=== PATIENT | female | born 1935 | race Caucasian/White ===

== ENCOUNTER 2018-06-16 11:31 | Day surgery (SDC) | payer OTHER ==
[~2018-06-16] VITALS: Ht 165.1 cm; Wt 60.8 kg
[2018-06-16] MEDS ORDERED: LOSA25 PO (12:15)
[2018-06-16] MEDS ORDERED: XARELTO20 MG PO (12:16)
== END 2018-06-16 15:20 | disposition home or self-care (01) ==
LOC: ORSCSDS 11:31
PROVIDERS: Orthopaedic Surgery
PROC: 01N50ZZ Release Median Nerve, Open Approach (ICD-10-PCS; principal; 2018-06-16 12:45)
DX: G56.02 Carpal tunnel syndrome, left upper limb (principal); I10 Essential (primary) hypertension; I48.91 Unspecified atrial fibrillation; Z79.01 Long term (current) use of anticoagulants; Z79.899 Other long term (current) drug therapy
CPT/HCPCS: J0690; J2250; J7120

== ENCOUNTER → 2019-05-11 | Outpatient (CLI) | payer OTHER ==
[~2019-05-11] MED LIST: CHOL10002 PO; DIGESTIVE ENZY1 EAC1 PO; Fish Oil 1,0001 EAC3 PO; LOSA25 PO; LOSARTAN-HCTZ1 EACH PO; Multivitamin1 EAC1 PO; PROBIOTIC1 EAC1 PO; XARELTO20 MG PO
== END | disposition home or self-care (01) ==
LOC: LAB SHORT 12:20 → LAB EV 12:20
DX: N89.8 Other specified noninflammatory disorders of vagina (principal)
CPT/HCPCS: 87205

== ENCOUNTER → 2019-08-06 | Outpatient (CLI) | payer OTHER | END | disposition home or self-care (01) | LOC: PLD 13:11 → LAB SHORT 13:11 | DX: C53.9 Malignant neoplasm of cervix uteri, unspecified (principal) | CPT/HCPCS: 88305 ==

== ENCOUNTER 2019-11-25 11:12 | Inpatient (IN) | payer OTHER ==
[~2019-11-25] VITALS: Ht 165.1 cm; Wt 59.1 kg
[~2019-11-25 11:12] MED LIST changes: -ONDA4 PO
[2019-11-25] MEDS ORDERED: ONDA4 PO (13:26)
--- NOTE | 2019-11-25 18:27 | NUR ---
SHIFT SUMMARY PT ADMITTED TO THE ROOM THIS AFTERNOON. PT TO THE ROOM VIA GURNEY. PT TRANSFERED INDEPENDENTLY TO THE BED. PT ALERT AND ORIENTED. PT UP TO BATHROOM WITH STANDBY ASSIST/HELP WITH IV POLE. ADMISSION ASSESSMENT COMPLETED IN ROOM WITH PT. PT CURRENTLY UP IN BED WITH SISTER IN ROOM.
[2019-11-26 01:25] LABS: Adenovirus F 40/41 Not Detected (NOT DETECT); Astrovirus Not Detected (NOT DETECT); Campylobacter Sp Not Detected (NOT DETECT); Cryptosporidium Not Detected (NOT DETECT); Cyclospora Cayetanensis Not Detected (NOT DETECT); E. Coli O157 Not Detected (NOT DETECT); Entamoeba Histolytica Not Detected (NOT DETECT); Enteroaggregative E. coli-EAEC Not Detected (NOT DETECT); Enteropathogenic E. coli-EPEC Not Detected (NOT DETECT); Enterotoxigenic E. coli-ETEC Not Detected (NOT DETECT); Giardia Lamblia Not Detected (NOT DETECT); Norovirus GI/GII Not Detected (NOT DETECT); Plesiomonas Shigelloides Not Detected (NOT DETECT); Rotavirus A Not Detected (NOT DETECT); Salmonella Sp Not Detected (NOT DETECT); Sapovirus Not Detected (NOT DETECT); Shiga Toxin-prod E. coli-STEC Not Detected (NOT DETECT); Shigella/Enteroin E. coli-EIEC Not Detected (NOT DETECT); Vibrio Cholerae Not Detected (NOT DETECT); Vibrio Sp Not Detected (NOT DETECT); Yersinia Enterocolitica Not Detected (NOT DETECT)
[2019-11-26 04:59] LABS: Hematocrit 27.6 % (33.0-51.0); Hemoglobin 10.2 g/dL (11.5-16.0); Mean Corpuscular HGB 34.8 pg (26.0-34.0); Mean Corpuscular Volume 94 fL (80-100); Platelet Count 278 K/mm3 (150-400); RDW Coefficient Variation 20.9 % (11.7-14.2); RDW Standard Deviation 65.7 fL (35.1-46.3); Red Blood Cell Count 2.93 M/mm3 (3.80-5.20); White Blood Cell Count 3.59 K/mm3 (4.00-11.30)
[2019-11-26 05:15] LABS: Alanine Aminotransfer (ALT/SGP 32 U/L (12-78); Albumin, Blood 2.4 g/dL (3.4-5.0); Albumin/Globulin Ratio 0.9 (0.8-1.8); Alk Phos 53 U/L (50-136); Anion Gap 10 mmol/L (6-16); Aspartate Aminotrans (AST/SGOT 18 U/L (12-37); Bilirubin, Total 0.8 mg/dL (0.1-1.0); Blood Urea Nitrogen 20 mg/dL (8-24); Bun/Creatinine Ratio 21.9 (12.0-20.0); CO2, Blood 20 mmol/L (21-32); Calcium, Blood 8.2 mg/dL (8.5-10.1); Chloride, Blood 101 mmol/L (98-108); Creatinine, Blood 0.92 mg/dL (0.40-1.00); Globulin, Blood 2.6 g/dL (2.2-4.0); Glomerular Filtration Rate >60 (60-); Glucose, Blood 111 mg/dL (70-99); Potassium, Blood 2.9 mmol/L (3.5-5.5); Sodium, Blood 131 mmol/L (136-145)
--- NOTE | 2019-11-26 05:32 | NUR ---
SHIFT SUMMARY PT REPORTS OVERALL JUST "NOT FEELING WELL". HAD SEVERAL VERY LARGE LIQUID/WATERY STOOLS THIS EVENING. SAMPLE SENT TO LAB COMING BACK NEGATIVE FOR EVERYTHING TESTED. DENIED NAUSEA THROUGH MUCH OF THE NIGHT UNTIL THIS AM. MEDICATED W/ 12.5 MG PHENERGAN WITH GOOD EFFECT. BONNIE COMPLETED THIS EVENING. PT'S POTASSIUM REMAINS LOW THIS AM 2.9. SPOKE WITH PEDIATRIC ACUTE CARE UNIT NURSE REGAN NATHAN. WILL NOTIFY HOSPITALIST WHEN SOMEONE CALLS. PT CONTINUES TO HAVE D5 W/ 1/2 NS AND 2O OF POTASSIUM RUNNING AT 100 ML/HR. TELEMETRY HAS REMAINED STABLE, SR W/ FIRST DEGREE HEART BLOCK AT 72.
[2019-11-26 05:58] LABS: BAND PERCENT MAN 8 % (0-8); BASOPHILS PERCENT MAN 0 % (0-2); EOSINOPHILS ABSOLUTE MAN 0.03 K/mm3 (0.00-0.68); EOSINOPHILS PERCENT MAN 1 % (0-6); LYMPHOCYTES ABSOLUTE MAN 0.53 K/mm3 (0.84-5.20); LYMPHOCYTES PERCENT MAN 15 % (21-46); METAMYELOCYTE ABSOLUTE MAN 0.03 K/mm3 (0.00-0.00); METAMYELOCYTE PERCENT MAN 1 % (0-0); MONOCYTES PERCENT MAN 28 % (4-13); NEUTROPHILS ABSOLUTE MAN 1.97 K/mm3 (1.96-9.15); SEG NEUTROPHILS PERCENT MAN 47 % (41-73); TOTAL CELLS COUNTED 100
--- NOTE | 2019-11-26 06:29 | NUR ---
HYPOKALEMIA DR. KING NOTIFIED OF POTASSIUM OF 2.9 THIS AM. NEW ORDERS FOR KCL 40 MEQ IV X 1.
--- NOTE | 2019-11-26 15:19 | NUR ---
Upon receiving an admit referral for spiritual care, I visit patient. Patient immediately shares about her recent medical history and family. Patient explains about the fatigue she feels. Patient's son-in-law enters patient's room and I learn that he travelled from [place] to visit patient. I ask patient if I could say a prayer for her, which she aggrees to. I gladly provide prayer and then leave so patient can visit with family. I will continue to remain available to patient and family.
[2019-11-26 16:42] LABS: Anion Gap 7 mmol/L (6-16); Blood Urea Nitrogen 16 mg/dL (8-24); Bun/Creatinine Ratio 17.6 (12.0-20.0); CO2, Blood 19 mmol/L (21-32); Calcium, Blood 8.1 mg/dL (8.5-10.1); Chloride, Blood 104 mmol/L (98-108); Creatinine, Blood 0.91 mg/dL (0.40-1.00); Glomerular Filtration Rate >60 (60-); Glucose, Blood 108 mg/dL (70-99); Potassium, Blood 3.1 mmol/L (3.5-5.5); Sodium, Blood 130 mmol/L (136-145)
--- NOTE | 2019-11-26 18:21 | NUR ---
SHIFT SUMMARY- PT IS A/O, PLESANT AND COOPERATIVE. SHE HAS SOME INTERMITENT NAUSEA AND DIARRHEA. HER APPETITE IS LOW. SHE HAD VISITORS AT BEDSIDE PERIODICALLY THROUGHOUT THIS SHIFT. SHE SLEPT INTERMITENTLY.
--- NOTE | 2019-11-26 22:50 | NUR ---
AFIB AROUND 2215 PT CONVERTED TO AFIB 80-90'S PER ZUNILDA CHRISTIANSEN. PER TELE REPORT PT OCCASIONALLY SPIKES INTO THE 120'S BUT HAS MOSTLY SUSTAINED 80-90'S. PT HAS A HX OF AFIB AND IS ON XARELTO. FLAVIO FENTON NOTIFED THAT PT HAD CONVERTED NO NEW ORDERS WERE GIVEN.
--- NOTE | 2019-11-27 04:34 | NUR ---
SHIFT SUMMARY PT VERY UNCOMFORTABLE AT THE BEGINNING OF THE SHIFT. INTERMITTENT NAUSEA, THAT DID NOT RESPOND TO IV ZOFRAN. ORDER RECEIVED FOR IV ATIVAN AND ADDITIONAL ORDERS FOR NAUSEA. PT RESPONDED WELL TO ATIVAN AND WAS ABLE TO REST FOR A FEW HOURS. NO EPISODES OF VOMITTING. PT DOES NOT USE CALL LIGHT AND DOES NOT REQUEST ANYTHING FOR NAUSEA WHEN SHE IS HAVING EPISODES, I ENCOURAGED PT TO NOTIFY ME IF SHE FELT SICK SO THAT I COULD MEDICATE IF NEEDED. PT EXPRESSED UNDERSTANDING. NO OTHER CHANGES TO REPORT. PO POTASSIUM PER ORDERS. BED IN LOWEST POSITION, CALL LIGHT WITHIN REACH. WILL CONTINUE TO MONITOR AND REPORT TO ONCOMING RN.
[2019-11-27 04:50] LABS: Hematocrit 33.9 % (33.0-51.0); Hemoglobin 12.6 g/dL (11.5-16.0); Mean Corpuscular HGB 35.2 pg (26.0-34.0); Mean Corpuscular HGB Conc 37.2 g/dL (31.5-36.5); Mean Corpuscular Volume 95 fL (80-100); Mean Platelet Volume 9.1 fL (9.1-12.4); Platelet Count 323 K/mm3 (150-400); RDW Coefficient Variation 21.4 % (11.7-14.2); RDW Standard Deviation 68.9 fL (35.1-46.3); Red Blood Cell Count 3.58 M/mm3 (3.80-5.20)
[2019-11-27 05:12] LABS: Magnesium, Blood 2.3 mg/dL (1.6-2.4)
[2019-11-27 05:14] LABS: Bun/Creatinine Ratio 15.8 (12.0-20.0); Calcium, Blood 8.3 mg/dL (8.5-10.1); Creatinine, Blood 1.01 mg/dL (0.40-1.00); Potassium, Blood 3.1 mmol/L (3.5-5.5)
--- NOTE | 2019-11-27 05:16 | NUR ---
FALL PT HAD BEEN CALLING APPROPRIATELY WHEN NEEDING ASSISTANCE TO THE BATHROOM, AND HAD BEEN A 1 PA STANDBY. GARCIA SCORE 45. UNSURE OF THE EXACT TIME THAT PT FELL BUT APPROX AROUND 0430 LAB WALKED INTO PT ROOM TO FIND PT IN BED. PER MONOTYPE OPERATOR REPORT THERE WAS EXCREMENT AND URINE ALL OVER THE FLOOR. SHE STATES THAT SHE WAS UNABLE TO MAKE IT TO THE BATHROOM, AND FELL. PT VERY DROWSY, BUT ANSWERS WHEN I TALK TO HER. SHE FIRST STATED THAT SHE FELL ON HER BACK BUT THEN LATER RECANTED AND STATED THAT SHE HAD FELL FORWARD ON HER HANDS AND KNEES. ABRASION NOTED TO THE RIGHT SIDE OF HER BACK. NO OTHER INJURIES NOTED. PHOTO TAKEN. SHE REPORTS SORENESS TO HER LEFT LOWER BACK. NO SKIN BREAKDOWN OR BRUISES PRESENT IN THE AREA OF COMPLAINT. SHE DENIES HITTING HER HEAD. PT HAD HELPED HERSELF BACK TO BED AND DID NOT CALL ONCE SHE HAD MADE IT BACK TO BED. SHE DID NOT NOTIFY THE MONOTYPE OPERATOR THAT SHE HAD FALLEN, IT WAS WHEN THE MONOTYPE OPERATOR NOTIFIED ROLL SCALE WORKER MONET MOORE THAT PT HAD BEEN INCONTINENT AND WHEN THE ROLL SCALE WORKER WENT INTO THE ROOM IT WAS THEN THAT THE PT NOTIFIED HER THAT SHE HAD FALLEN. VITALS OBTAINED AND ARE STABLE. DR. KING CALLED AROUND 0520, RECEIVED CALL BACK FROM HIM AT 0535. DR. KING STATES JUST TO WATCH FOR NOW. STAFFING CLERK MADE AWARE. PT RESTING IN BED WITH NO COMPLAINTS AT THIS TIME. BED ALARM IS IN PLACE. PT EDUCATED TO USE CALL LIGHT WHEN SHE NEEDS TO GET OOB BED.
[2019-11-27 05:54] LABS: BAND PERCENT MAN 12 % (0-8); BASOPHILS PERCENT MAN 0 % (0-2); EOSINOPHILS ABSOLUTE MAN 0.05 K/mm3 (0.00-0.68); EOSINOPHILS PERCENT MAN 1 % (0-6); LYMPHOCYTES ABSOLUTE MAN 1.08 K/mm3 (0.84-5.20); LYMPHOCYTES PERCENT MAN 19 % (21-46); METAMYELOCYTE ABSOLUTE MAN 0.05 K/mm3 (0.00-0.00); METAMYELOCYTE PERCENT MAN 1 % (0-0); MONOCYTES ABSOLUTE MAN 1.36 K/mm3 (0.16-1.47); MONOCYTES PERCENT MAN 24 % (4-13); NEUTROPHILS ABSOLUTE MAN 3.13 K/mm3 (1.96-9.15); SEG NEUTROPHILS PERCENT MAN 43 % (41-73); TOTAL CELLS COUNTED 100
--- NOTE | 2019-11-27 12:37 | NUR ---
TELEMETRY CALLED TO NOTIFY ME OF A HIGH PULSE AND CARDIAC CONVERSION TO AFLUTTER. CALLED DR. CASON, HE WILL ORDER METORPROLOL AND WILL MONITOR HEART. IF NOT RESOLVED WITH CARDIAC MEDICATION POSSIBLE TRANSFER TO PCU.
--- NOTE | 2019-11-27 15:59 | NUR ---
PT CONVERTED TO SINUS AT [address] CASON
--- NOTE | 2019-11-27 17:05 | NUR ---
PT IS A/O, PLESANT AND COOPERATIVE. SHE HAS FAMILY AT THE BEDSIDE INTERMITENTLY THROUGHOUT THIS SHIFT. SHE IS STILL EXPERIENCING LOOSE STOOLS AND HAD ONE EPISODE ON VOMITING. HER APPETITE IS LOW. PROVIDER ORDERED IV FLUIDS. SHE HAD AN INCREASE IN HER PULSE TO THE 120'S WHILE AMBULATING TO THE RESTROOM BUT STABALIZED. LATER THIS AFTERNOON PT CONVERTED TO AFLUTTER AND HER PULSE INCREASED TO 150-160. PROVIDER ORDERED PO LOPRESSOR WHICH CONVERTED HER BACK TO SINUS AND DECREASED HER PULSE TO 67. HER AFTERNOON VITALS SHOWED A DECREASE IN BP OF 88/57. PROVIDER NOTIFIED AND ORDERED 500 ML NS BOLUS.
--- NOTE | 2019-11-28 02:30 | NUR ---
PT IS PLEASANT AND COOPERATIVE WITH CARE. AAOX4 BUT VERY TIRED. AND SON IN ROOM AT BEGINING OF SHIFT BUT LEFT THIS EVENING. EVENING METOPROLOL NOT GIVEN VS OUT OF PERAMETERS SBP<105. PRESENTLY SLEEPING AND SNORING SOFTLY. WILL CONTINUE TO MONITOR.
--- NOTE | 2019-11-28 04:34 | NUR ---
NOC SHIFT SUMMARY PT IS PLEASANT AND COOPERATIVE WITH CARE. VSS. ON TELE, PRESENTLY SR RATE 71 PER MOTION AND TIME STUDY TEACHER. IV FLUIDS RUNNING. HAS BEEN CONTINENT. BED ALARM IS SET. PT DOES NOT ALWAY USE CALL LIGHT. WAS INFORMED DURING REPORT PT HAD FALLEN ON PREVIOUS NIGHT. HAS SLEPT MUCH OF THE NIGHT. HAS HAD 3 SMALL EPISODES OF DIARRHEA. PRESENTLY BACK IN BED FROM [facility]. NO ACUTE CHANGES NOTED THIS NIGHT. WILL CONTINUE TO MONITOR.
[2019-11-28 04:44] LABS: Hematocrit 30.1 % (33.0-51.0); Hemoglobin 10.8 g/dL (11.5-16.0); Mean Corpuscular HGB 35.5 pg (26.0-34.0); Mean Corpuscular HGB Conc 35.9 g/dL (31.5-36.5); Mean Platelet Volume 8.9 fL (9.1-12.4); NRBC ABSOLUTE 0.02 K/mm3 (0.00-0.02); NRBC Auto 0.4 /100 WBC (0.0-0.2); Platelet Count 277 K/mm3 (150-400); RDW Coefficient Variation 22.1 % (11.7-14.2); RDW Standard Deviation 73.5 fL (35.1-46.3); Red Blood Cell Count 3.04 M/mm3 (3.80-5.20); White Blood Cell Count 4.74 K/mm3 (4.00-11.30)
[2019-11-28 04:57] LABS: Mean Corpuscular Volume 99 fL (80-100)
[2019-11-28 05:25] LABS: Albumin, Blood 1.9 g/dL (3.4-5.0); Anion Gap 9 mmol/L (6-16); Blood Urea Nitrogen 17 mg/dL (8-24); Bun/Creatinine Ratio 17.2 (12.0-20.0); CO2, Blood 14 mmol/L (21-32); Calcium, Blood 7.4 mg/dL (8.5-10.1); Chloride, Blood 114 mmol/L (98-108); Creatinine, Blood 0.99 mg/dL (0.40-1.00); Glomerular Filtration Rate 57 (60-); Glucose, Blood 94 mg/dL (70-99); Phosphorus, Blood 2.1 mg/dL (2.5-4.9); Potassium, Blood 3.9 mmol/L (3.5-5.5); Sodium, Blood 137 mmol/L (136-145)
[2019-11-28 05:35] LABS: BAND PERCENT MAN 23 % (0-8); BASOPHILS PERCENT MAN 0 % (0-2); EOSINOPHILS ABSOLUTE MAN 0.04 K/mm3 (0.00-0.68); EOSINOPHILS PERCENT MAN 1 % (0-6); LYMPHOCYTES ABSOLUTE MAN 0.42 K/mm3 (0.84-5.20); LYMPHOCYTES PERCENT MAN 9 % (21-46); METAMYELOCYTE ABSOLUTE MAN 0.09 K/mm3 (0.00-0.00); METAMYELOCYTE PERCENT MAN 2 % (0-0); MONOCYTES ABSOLUTE MAN 0.52 K/mm3 (0.16-1.47); MONOCYTES PERCENT MAN 11 % (4-13); MYELOCYTE ABSOLUTE MAN 0.09 K/mm3 (0.00-0.00); MYELOCYTE PERCENT MAN 2 % (0-0); NEUTROPHILS ABSOLUTE MAN 3.55 K/mm3 (1.96-9.15); SEG NEUTROPHILS PERCENT MAN 52 % (41-73); TOTAL CELLS COUNTED 100
--- NOTE | 2019-11-28 15:18 | NUR ---
SHIFT SUMMARY PT SLEEPING AT START OF SHIFT. WOKE EARLY FOR CARE. ASSISTED TO BSC; VERY WEAK, AND UNSTEADY. VOIDING WITH SM AMT OF DIARRHEA WITH EACH VOID. IMMODIUM GIVEN PER EMAR. DR CASON IN TO SEE PT; NEW ORDERS PLACED. IVF'S DECREASED PT IS DRINKING WELL AND STARTING TO EAT A LITTLE BIT NOW. FAMILY REQUESTED DIET TO BE ADVANCED, SINCE PT TO D/C TO HOME TOMORROW. DR CASON NOTIFIED AND DIET CHANGED TO FULL LIQUID FOR DINNER AND ADVANCE TOLERATED. PT TO BE UP WALKING AGAIN WELL. NOW GOING INTO BTHRM INSTEAD OF BSC AND PT TO WALK HALLS BEFORE AND AFTER DINNER TODAY. PT DENIED FURTHER NEEDS. REQUESTED TO REST AT THIS TIME BEFORE GOING FOR A WALK. CALL LT IN REACH. BED ALARM ON FOR SAFETY.
--- NOTE | 2019-11-28 23:25 | NUR ---
PT IS PLEASANT AND COOPERATIVE WITH CARE. AAOX4. SHE IS ABLE TO CARRY ON CONVERSATIONS, RECOGNIZED FAMILY AND CAREGIVERS, FOLLOW DIRECTIONS, AND ANSWERE QUESTIONS APROPRIATELY. HOWEVER, SHE IS IMPULSIVE AND DOES NOT USE CALL LIGHT. ATTEMPTS TO GET OUT OF BED TO USE RESTROOM. SHE IS VERY UNSTEADY ON HER FEET. WAS INFORMED SHE HAD A FALL TWO NIGHTS AGO RESULTING IN SMALL ABRASION TO HER BACK. PRESENTLY SLEEPING AND BED ALARM IS ON.
--- NOTE | 2019-11-29 04:07 | NUR ---
NOC SHIFT SUMMARY PT PLEASANT AND COOPERATIVE WITH CARE. CONTINUES IV FLUIDS NS WITH K AT 100ML/HR. GETS UP TO VOID PERIODICALLY. HAS HAD CONTINUING DIARRHEA. HAVE GIVEN PRN IMMODIUM. PT IS VERY TIRED AND FALLS TO SLEEP EASILY ONCE RETURNING TO BED. VSS. NO INSTANCES OF TACHYCARDIA NOTED THIS NIGHT. PRESENTLY SR RATE 76 PER TELE MONITOR. PT IS SLEEPING AND APPEARS IN NO ACUTE DISTRESS. WILL CONTINUE TO MONITOR.
[2019-11-29 05:32] LABS: BASOPHILS ABSOLUTE AUTO 0.04 K/mm3 (0.00-0.23); BASOPHILS PERCENT AUTO 1 % (0-2); Hematocrit 32.7 % (33.0-51.0); Hemoglobin 11.3 g/dL (11.5-16.0); LYMPHOCYTES ABSOLUTE AUTO 0.26 K/mm3 (0.84-5.20); LYMPHOCYTES PERCENT AUTO 5 % (21-46); MONOCYTES ABSOLUTE AUTO 0.93 K/mm3 (0.16-1.47); MONOCYTES PERCENT AUTO 18 % (4-13); Mean Corpuscular HGB 35.1 pg (26.0-34.0); Mean Corpuscular HGB Conc 34.6 g/dL (31.5-36.5); Mean Platelet Volume 8.6 fL (9.1-12.4); NRBC ABSOLUTE 0.02 K/mm3 (0.00-0.02); NRBC Auto 0.4 /100 WBC (0.0-0.2); Platelet Count 258 K/mm3 (150-400); RDW Coefficient Variation 22.3 % (11.7-14.2); RDW Standard Deviation 76.5 fL (35.1-46.3); Red Blood Cell Count 3.22 M/mm3 (3.80-5.20); White Blood Cell Count 5.22 K/mm3 (4.00-11.30)
[2019-11-29 05:33] LABS: EOSINOPHILS ABSOLUTE AUTO 0.09 K/mm3 (0.00-0.68); EOSINOPHILS PERCENT AUTO 2 % (0-6); IMMATURE GRAN ABSOLUTE AUTO 0.27 K/mm3 (0.00-0.10); IMMATURE GRAN PERCENT AUTO 5 % (0-1); Mean Corpuscular Volume 102 fL (80-100); NEUTROPHILS ABSOLUTE AUTO 3.63 K/mm3 (1.96-9.15); NEUTROPHILS PERCENT AUTO 70 % (41-73)
[2019-11-29 05:58] LABS: BAND PERCENT MAN 23 % (0-8); BASOPHILS PERCENT MAN 0 % (0-2); EOSINOPHILS PERCENT MAN 2 % (0-6); LYMPHOCYTES ABSOLUTE MAN 0.26 K/mm3 (0.84-5.20); LYMPHOCYTES PERCENT MAN 5 % (21-46); METAMYELOCYTE ABSOLUTE MAN 0.05 K/mm3 (0.00-0.00); METAMYELOCYTE PERCENT MAN 1 % (0-0); MONOCYTES ABSOLUTE MAN 0.46 K/mm3 (0.16-1.47); MONOCYTES PERCENT MAN 9 % (4-13); MYELOCYTE ABSOLUTE MAN 0.05 K/mm3 (0.00-0.00); MYELOCYTE PERCENT MAN 1 % (0-0); NEUTROPHILS ABSOLUTE MAN 4.28 K/mm3 (1.96-9.15); SEG NEUTROPHILS PERCENT MAN 59 % (41-73); TOTAL CELLS COUNTED 100
[2019-11-29 06:02] LABS: Magnesium, Blood 1.8 mg/dL (1.6-2.4)
[2019-11-29 06:04] LABS: Albumin, Blood 1.8 g/dL (3.4-5.0); Albumin/Globulin Ratio 0.8 (0.8-1.8); Bilirubin, Total 0.4 mg/dL (0.1-1.0); Bun/Creatinine Ratio 13.7 (12.0-20.0); Calcium, Blood 7.6 mg/dL (8.5-10.1); Creatinine, Blood 0.95 mg/dL (0.40-1.00); Globulin, Blood 2.4 g/dL (2.2-4.0); Potassium, Blood 4.2 mmol/L (3.5-5.5); Total Protein, Blood 4.2 g/dL (6.4-8.2)
--- NOTE | 2019-11-29 14:08 | NUR ---
ELEVATED HR: PCU OIL WELL GUN PERFORATOR OPERATOR, PAM L. NOTIFIED RN THAT PATIENT WAS EXPERIENCING SUSTAINED HR 130-140, AFIB. PATIENT RESTING COMFORTABLY IN BED. DENIES SOB, CHEST PAIN OR FEELINGS OF PALPATIATIONS. NOTIFIED DR. CASON. NEW ORDER RECEIVED AND PLACED.
[2019-11-29] MEDS ORDERED: ACET325 PO (14:34)
[2019-11-29] MEDS ORDERED: Norco 5-325 Ta1 EACH PO (14:35)
[2019-11-29] MEDS ORDERED: IBUP400 PO (14:36)
[2019-11-29] MEDS ORDERED: LOPE2C PO ×2 (14:37)
[2019-11-29] MEDS ORDERED: ONDA4ODT MM (14:38)
[2019-11-29] MEDS ORDERED: POTCHL20ER PO (14:38)
[2019-11-29] MEDS ORDERED: METO25 PO (14:39)
--- NOTE | 2019-11-29 20:03 | NUR ---
END OF SHIFT SUMMARY/DISCHARGE SUMMARY: PATIENT DENIED PAIN THROUGHOUT SHIFT. PATIENT REPORTED NAUSEA. MEDICATED PER PRNS. PATIENT HAD ONE EPISODE OF EMESIS (1000ML), PATIENT REPORTED RELIEF AFTER. PATIENT TOLERATED SMALL AMOUNTS OF PO AND PO FLUIDS THROUGHOUT THE REST OF THE SHIFT. PATIENT UP TO BSC MULTIPLE TIMES. PATIENT STEADY ON HER FEET WITH USE OF RAILS. REPORTS DIZZINESS THAT RESOLVES WHEN SITTING. PATIENT CONTINENT WITH SMALL ACCIDENTS AT TIMES. IN EARLY AFTERNOON, RN NOTIFIED THAT PATIENT HAD CONVERTED TO AFIB IN 130-140S. NOTIFIED DR. Mariya CASON. NEW ORDERS RECEIVED (SEE NURSE'S NOTE). AT ABOUT 1510, PATIENT CONVERTED BACK TO NSR IN THE 80S. ABOUT 1.5 HOURS LATER, PATIENT CONVERTED TO AFLUTTER 130-140S. NOTIFIED DR. Mariya CASON. NO NEW ORDERS. PATIENT CONTINUED TO BE ASYMPTOMATIC. PATIENT'S SON CAME TO PERINATOLOGY PHYSICIAN PATIENT FOR DISCHARGE. PATIENT'S SON EXPRESSED SOME CONCERNS ABOUT TAKING THE PATIENT HOME TONIGHT. NOTIFIED DR. CASON. HE WAS ABLE TO DISCUSS THE DISCHARGE WITH THE SON. DISCHARGE MEDICATIONS FAXED TO [facility] PER PATIENT REQUEST. PATIENT'S SON ABLE TO PERINATOLOGY PHYSICIAN MEDICATIONS (INCLUDING SCRIPT FOR NORCO) PRIOR TO DISCHARGE. DISCHARGE EDUCATION AND INFORMATION PROVIDED TO PATIENT AND SON. ALL IMMEDIATE QUESTIONS AND CONCERNS ADDRESSED. DENIED NEED FOR FURTHER INFORMATION. PATIENT DISCHARGED IN WHEELCHAIR WITH CUFF PRESSER. PATIENT STABLE AT TIME OF DISCHARGE.
== END 2019-11-29 19:08 | disposition home or self-care (01) | DRG 394 ==
LOC: ER 11:12 → MEDS 15:11
PROVIDERS: Internal Medicine Gastroenterology; ADMIT Family Medicine
DX: K52.0 Gastroenteritis and colitis due to radiation (principal); I50.32 Chronic diastolic (congestive) heart failure; E87.2 Acidosis; C53.9 Malignant neoplasm of cervix uteri, unspecified; I11.0 Hypertensive heart disease with heart failure; E87.6 Hypokalemia; F41.8 Other specified anxiety disorders; E83.42 Hypomagnesemia; W01.0XXA Fall on same level from slipping, tripping and stumbling without subsequent striking against object, initial encounter; Y92.230 Patient room in hospital as the place of occurrence of the external cause; E86.0 Dehydration; Z79.01 Long term (current) use of anticoagulants; I48.0 Paroxysmal atrial fibrillation; G89.3 Neoplasm related pain (acute) (chronic)
CPT/HCPCS: 0097U; 36415; 80048; 80053; 80069; 83735; 85025; 96361; 96365; 96375; 99284-25; J2060; J2405; J2550; J2765; J3475; J3480; J7030; J7040

== ENCOUNTER → 2019-11-25 | Outpatient (CLI) | payer OTHER ==
[~2019-11-25] MED LIST changes: +Hair, Skin & N1 EACH PO; -Multivitamin1 EAC1 PO; +ONDA4 PO
[2019-11-25 09:51] LABS: Hematocrit 32.4 % (33.0-51.0); Hemoglobin 12.1 g/dL (11.5-16.0); Mean Corpuscular HGB 34.8 pg (26.0-34.0); Mean Corpuscular HGB Conc 37.3 g/dL (31.5-36.5); Mean Corpuscular Volume 93 fL (80-100); Mean Platelet Volume 9.4 fL (9.1-12.4); Platelet Count 353 K/mm3 (150-400); RDW Coefficient Variation 20.3 % (11.7-14.2); RDW Standard Deviation 63.5 fL (35.1-46.3); Red Blood Cell Count 3.48 M/mm3 (3.80-5.20); White Blood Cell Count 4.62 K/mm3 (4.00-11.30)
[2019-11-25 10:21] LABS: Albumin, Blood 2.7 g/dL (3.4-5.0); Albumin/Globulin Ratio 0.9 (0.8-1.8); Bilirubin, Total 1.4 mg/dL (0.1-1.0); Calcium, Blood 8.5 mg/dL (8.5-10.1); Creatinine, Blood 1.04 mg/dL (0.40-1.00); Potassium, Blood 2.4 mmol/L (3.5-5.5); Total Protein, Blood 5.7 g/dL (6.4-8.2)
[2019-11-25 10:46] LABS: BAND PERCENT MAN 22 % (0-8); BASOPHILS PERCENT MAN 0 % (0-2); EOSINOPHILS ABSOLUTE MAN 0.09 K/mm3 (0.00-0.68); EOSINOPHILS PERCENT MAN 2 % (0-6); LYMPHOCYTES ABSOLUTE MAN 0.46 K/mm3 (0.84-5.20); LYMPHOCYTES PERCENT MAN 10 % (21-46); MONOCYTES ABSOLUTE MAN 0.69 K/mm3 (0.16-1.47); MONOCYTES PERCENT MAN 15 % (4-13); NEUTROPHILS ABSOLUTE MAN 3.37 K/mm3 (1.96-9.15); SEG NEUTROPHILS PERCENT MAN 51 % (41-73); TOTAL CELLS COUNTED 100
== END | disposition home or self-care (01) ==
LOC: LAB 09:15 → LAB SHORT 09:15
PROVIDERS: Internal Medicine Hematology & Oncology
DX: C53.9 Malignant neoplasm of cervix uteri, unspecified (principal)
CPT/HCPCS: 80053; 85025

== ENCOUNTER 2019-12-05 06:13 | Inpatient (IN) | payer OTHER ==
[~2019-12-05] VITALS: Ht 165.1 cm; Wt 70.4 kg
[~2019-12-05 06:13] MED LIST changes: +ACET325 PO; +IBUP400 PO; +LOPE2C PO; +METO25 PO; +Norco 5-325 Ta1 EACH PO; +ONDA4 PO; +ONDA4ODT MM; +POTCHL20ER PO
[2019-12-05 07:12] LABS: Hematocrit 24.5 % (33.0-51.0); Hemoglobin 8.2 g/dL (11.5-16.0); Mean Corpuscular HGB 35.2 pg (26.0-34.0); Mean Corpuscular HGB Conc 33.5 g/dL (31.5-36.5); Mean Platelet Volume 9.3 fL (9.1-12.4); NRBC ABSOLUTE 0.02 K/mm3 (0.00-0.02); NRBC Auto 0.8 /100 WBC (0.0-0.2); Platelet Count 175 K/mm3 (150-400); RDW Coefficient Variation 23.4 % (11.7-14.2); RDW Standard Deviation 83.6 fL (35.1-46.3); Red Blood Cell Count 2.33 M/mm3 (3.80-5.20); White Blood Cell Count 2.57 K/mm3 (4.00-11.30)
[2019-12-05 07:16] LABS: Mean Corpuscular Volume 105 fL (80-100)
[2019-12-05 07:41] LABS: Albumin, Blood 1.3 g/dL (3.4-5.0); Albumin/Globulin Ratio 0.5 (0.8-1.8); Bilirubin, Total 0.5 mg/dL (0.1-1.0); Bun/Creatinine Ratio 36.9 (12.0-20.0); Calcium, Blood 8.1 mg/dL (8.5-10.1); Creatinine, Blood 1.3 mg/dL (0.40-1.00); Globulin, Blood 2.8 g/dL (2.2-4.0); Potassium, Blood 4.2 mmol/L (3.5-5.5); Total Protein, Blood 4.1 g/dL (6.4-8.2)
[2019-12-05] MEDS ORDERED: LOSARTAN-HCTZ1 EAC3 PO (07:42)
[2019-12-05 07:44] LABS: BAND PERCENT MAN 12 % (0-8); BASOPHILS PERCENT MAN 0 % (0-2); EOSINOPHILS PERCENT MAN 0 % (0-6); LYMPHOCYTES ABSOLUTE MAN 0.17 K/mm3 (0.84-5.20); LYMPHOCYTES PERCENT MAN 7 % (21-46); METAMYELOCYTE ABSOLUTE MAN 0.02 K/mm3 (0.00-0.00); METAMYELOCYTE PERCENT MAN 1 % (0-0); MONOCYTES ABSOLUTE MAN 0.25 K/mm3 (0.16-1.47); MONOCYTES PERCENT MAN 10 % (4-13); SEG NEUTROPHILS PERCENT MAN 70 % (41-73); TOTAL CELLS COUNTED 100
--- NOTE | 2019-12-05 15:49 | NUR ---
SHIFT SUMMARY PT ARRIVED FROM THE ER THIS AFTERNOON VERY FATIGUED AND PALE. HER EYES ARE CLOSED AND SHE IS SLOW TO RESPOND BUT DOES ANSWER APPROPRIATELY AND IS ORIENTED X 4. ORAL CARE WAS PROVIDED AND IV FLUIDS STARTED ORDERED. DAUGHTER IS AT THE BEDSIDE AND WAS BALE TO ANSWER QUESTIONS ABOUT HER MOM AND WHAT HAS HAPPENED SINCE SHE WAS DCD LAST WEEK. PT HAS BEEN INC OF STOOL X 1 WHICH WAS A DARK BROWN IN COLOR BUT WAS ABLE TO CALL FOR HELP AND USE THE BED PAIN FOR VOIDING. SHE NEEDS X 2 ASSIST FOR TURNING AND REPOSITIONING AND ADLS SHE IS VERY WEAK. HER SKIN IS INTACT BUT SHE DOES HAVE EDEMA TO BLE. CONSULTS WERE CALLED IN ORDERED. FAMILY REMAINS AT THE BEDSIDE. PT IS ABLE TO MAKE NEEDS KNOWN AT TIMES BUT THE FAMILY HAS BEEN CALLING FOR HELP WHEN NEEDED. CALL LIGHT IS IN REACH.
--- NOTE | 2019-12-06 04:07 | NUR ---
SHIFT SUMMARY: VSS. AFEB. A/OX3. SLOW TO RESPOND. VOICE IS QUIET AND WEAK. DIFFICULTY W/ FINE MOTOR MOVEMENT AND HAND STRENGTH. UNABLE TO USE SPOON TO FEED SELF. LETHARGIC, BUT RESPONSIVE TO VERBAL STIMULI. FLAT AFFECT. ABD SOFT, TENDER IN ALL QUADRANTS, NON-DISTENDED. DENIES N/V. NO BM TONIGHT. VOIDING BOTH CONT AND INCONTINENT. BED LOW, CALL BUTTON IN REACH. MAKING NEEDS KNOWN. WILL CONT TO MONITOR.
[2019-12-06 05:36] LABS: BASOPHILS ABSOLUTE AUTO 0.02 K/mm3 (0.00-0.23); BASOPHILS PERCENT AUTO 1 % (0-2); LYMPHOCYTES ABSOLUTE AUTO 0.14 K/mm3 (0.84-5.20); LYMPHOCYTES PERCENT AUTO 4 % (21-46); MONOCYTES ABSOLUTE AUTO 0.26 K/mm3 (0.16-1.47); MONOCYTES PERCENT AUTO 7 % (4-13); Mean Corpuscular HGB 35.4 pg (26.0-34.0); Mean Corpuscular HGB Conc 33.3 g/dL (31.5-36.5); Mean Corpuscular Volume 106 fL (80-100); Mean Platelet Volume 9.7 fL (9.1-12.4); Platelet Count 142 K/mm3 (150-400); RDW Coefficient Variation 23.7 % (11.7-14.2); RDW Standard Deviation 85.8 fL (35.1-46.3); Red Blood Cell Count 1.98 M/mm3 (3.80-5.20); White Blood Cell Count 3.88 K/mm3 (4.00-11.30)
[2019-12-06 05:41] LABS: EOSINOPHILS ABSOLUTE AUTO 0.03 K/mm3 (0.00-0.68); EOSINOPHILS PERCENT AUTO 1 % (0-6); IMMATURE GRAN ABSOLUTE AUTO 0.07 K/mm3 (0.00-0.10); IMMATURE GRAN PERCENT AUTO 2 % (0-1); NEUTROPHILS ABSOLUTE AUTO 3.36 K/mm3 (1.96-9.15); NEUTROPHILS PERCENT AUTO 87 % (41-73)
[2019-12-06 06:10] LABS: BAND PERCENT MAN 26 % (0-8); BASOPHILS PERCENT MAN 0 % (0-2); EOSINOPHILS ABSOLUTE MAN 0.03 K/mm3 (0.00-0.68); EOSINOPHILS PERCENT MAN 1 % (0-6); LYMPHOCYTES ABSOLUTE MAN 0.07 K/mm3 (0.84-5.20); LYMPHOCYTES PERCENT MAN 2 % (21-46); METAMYELOCYTE ABSOLUTE MAN 0.07 K/mm3 (0.00-0.00); METAMYELOCYTE PERCENT MAN 2 % (0-0); MONOCYTES ABSOLUTE MAN 0.15 K/mm3 (0.16-1.47); MONOCYTES PERCENT MAN 4 % (4-13); NEUTROPHILS ABSOLUTE MAN 3.53 K/mm3 (1.96-9.15); SEG NEUTROPHILS PERCENT MAN 65 % (41-73); TOTAL CELLS COUNTED 100
[2019-12-06 06:21] LABS: Albumin, Blood 1.2 g/dL (3.4-5.0); Albumin/Globulin Ratio 0.5 (0.8-1.8); Bilirubin, Total 0.4 mg/dL (0.1-1.0); Bun/Creatinine Ratio 32.2 (12.0-20.0); Calcium, Blood 7.9 mg/dL (8.5-10.1); Creatinine, Blood 1.15 mg/dL (0.40-1.00); Globulin, Blood 2.6 g/dL (2.2-4.0); Total Protein, Blood 3.8 g/dL (6.4-8.2)
[2019-12-06 11:34] LABS: Magnesium, Blood 1.9 mg/dL (1.6-2.4); Phosphorus, Blood 2.6 mg/dL (2.5-4.9)
--- NOTE | 2019-12-06 15:00 | NUR ---
Clinical Visit; Pt is resting. Her family is gowning down to see her. 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 Discussed with pt's daughter, Kerry, and her . She is the pt's decision maker. She updates on the current illness and treatments leading up to the current illness. Kerry is clearly in distress over her mother's condition and pain. She reports, "they never told me that radiation can burn my mother's insides." Listened while Kerry shares her concerns. There is a POLST form on file for the pt. Reviewed this with the family. States allow CPR and limited interventions. She is willing to change the status to her mother's wishes for treatment. Will place the pt on DNI. She would like to review the chest compression intervention with the rest of the family and the pt herself. Copies of pt's advance directive are made and sent to medical records. Review of medications. Review of plan. Kerry states that they have not made an alternate plan on how much treatment her mother is willing to do - or when she would want to stop things. She is making plans to review this with family. She is wanting to start the IV nutrition. Pt has just had PICC line placed. Pt has a very poor prognosis. Family appears to be understanding. GI doctor has told them what has happened as a result of radiation treatment. Palliative care to remain available for further discussion on plan of care. Call placed to Dr. Rodrigez and code status changed to DNI in accordance with the pt's POLST form. Family expresses wish to be in compliance with the pt's advance directive also. Advance directive states that pt does not want life support or tube feedings.
--- NOTE | 2019-12-06 16:47 | NUR ---
SHIFT SUMMARY PT REMAINS A/O X 4 BUT FATIGUED AND SLOW TO RESPOND. DR Hylton SAW PT THIS MORNING AND MET WITH THE PT AND THE FAMILY. IV FLUIDS,ABO, NUTRITION AND BLOOD HAVE ALL BEEN INFUSING ORDERED WITH NO ISSUES OBSERVED. PROCEDURE NURSE WAS SUCCESSFUL IN STARTING A POWERGLIDE IN PT'S RUE AND THE 2 PERIPHERAL LINES REMAIN PATENT. PT HAS HAD A MULTITUDE OF VISITORS THROUGHOUT THE DAY. PT APPEARS PALE AND TIRED AND OFTEN CLOSES HER EYES MID SENTENCE TO REST. PALLIATIVE CARE NURSE MET WITH FAMILY THIS AFTERNOON TO DISCUSS CODE STATUS. PT C/O ABDOMINAL PAIN X 1 THIS AFTERNOON AND REPORTED THE ORDERED PAIN MEDS WERE EFFECTIVE. PT HAS BEEN CONT AND INC AT TIMES. SHE REMAINS ON A CLEAR LIQUID DIET AND REPORTS A DRY MOUTH. ICE CHIPS ARE AT THE BEDSIDE ALONG WITH MOUTH SWABS AND ORAL CARE HAS BEEN COMPLETED THROUGHOUT THE DAY. FAMILY IS AT THE BEDSIDE NOW. PT IS ABLE TO MAKE HER NEEDS KNOWN AND CALLS FOR HELP WHEN NEEDED. CALL LIGHT IS IN REACH. EFFECTIVE
--- NOTE | 2019-12-07 00:40 | NUR ---
PT CONT'S TO BE DROWSY BUT WAS MORE ALERT AND WAKEFUL DURING MN IV ABX IN COMPARISON TO PRIOR HS MEDICATION PASS. SHE REQUESTED ICE CHIPS AND TOLERATED 1 ASSIST FOR ATTENDS CHANGE W/ABILITY TO ASSIST W/TURNING. PT WAS INCONTINENT OF URINE ONLY SO STAFF WERE UNABLE TO OBTAIN STOOL SPECIMEN. ATTENDS WERE SATURATED THOUGH W/SKIN CARE PROVIDED. PT CONT'S TO DENY PAIN, DIZZYNESS, NAUSEA AND ALL OTHER COMPLAINTS. WCTM FOR CHANGES.
[2019-12-07 05:40] LABS: Hematocrit 27.7 % (33.0-51.0); Hemoglobin 9.3 g/dL (11.5-16.0); Mean Corpuscular HGB 31.7 pg (26.0-34.0); Mean Corpuscular HGB Conc 33.6 g/dL (31.5-36.5); Mean Platelet Volume 9.4 fL (9.1-12.4); Platelet Count 104 K/mm3 (150-400); RDW Coefficient Variation 25.4 % (11.7-14.2); RDW Standard Deviation 82.7 fL (35.1-46.3); Red Blood Cell Count 2.93 M/mm3 (3.80-5.20); White Blood Cell Count 3.43 K/mm3 (4.00-11.30)
[2019-12-07 05:44] LABS: Mean Corpuscular Volume 95 fL (80-100)
[2019-12-07 06:04] LABS: BAND PERCENT MAN 28 % (0-8); BASOPHILS PERCENT MAN 0 % (0-2); EOSINOPHILS PERCENT MAN 0 % (0-6); LYMPHOCYTES ABSOLUTE MAN 0.03 K/mm3 (0.84-5.20); LYMPHOCYTES PERCENT MAN 1 % (21-46); METAMYELOCYTE ABSOLUTE MAN 0.03 K/mm3 (0.00-0.00); METAMYELOCYTE PERCENT MAN 1 % (0-0); MONOCYTES PERCENT MAN 3 % (4-13); MYELOCYTE ABSOLUTE MAN 0.03 K/mm3 (0.00-0.00); MYELOCYTE PERCENT MAN 1 % (0-0); Magnesium, Blood 1.8 mg/dL (1.6-2.4); NEUTROPHILS ABSOLUTE MAN 3.22 K/mm3 (1.96-9.15); SEG NEUTROPHILS PERCENT MAN 66 % (41-73); TOTAL CELLS COUNTED 100
--- NOTE | 2019-12-07 06:05 | NUR ---
KELLIE LIM CALLED AND SAID PT IS CLEARED BY INFECTION CONTROL AND STOOL COLLECTIONS SHOULD BE CANCELLED AT THIS TIME D/T NO BM X24 HOURS. ISOLATION DC'D.
[2019-12-07 06:10] LABS: Bun/Creatinine Ratio 30.1 (12.0-20.0); Calcium, Blood 7.3 mg/dL (8.5-10.1); Creatinine, Blood 1.03 mg/dL (0.40-1.00); Phosphorus, Blood 2.1 mg/dL (2.5-4.9); Potassium, Blood 3.5 mmol/L (3.5-5.5)
--- NOTE | 2019-12-07 06:55 | NUR ---
SUMMARY: PT A/OX4 AND SPECIFIES NEEDS BUT IS VERY WEAK AND FATIGUED REQUIRING REPOSITIONING ASSIST. SHE REMAINS ON BEDREST W/TURN SCHEDULE MAINTAINED AND PILLOWS PLACED FOR SUPPORT AND SBD PREVENTION. DEPENDENT EDEMA NOTED TO X4 EXT'S. PT HASN'T HAD ANY ADDITIONAL BM'S THIS SHIFT SO ISOLATION WAS DC'D AFTER BEING CLEARED BY KELLIE LIM. HGB/HCT IMPROVED, NOW 9.3 AND 27.7. PT DENIED PAIN, NAUSEA AND ALL OTHER COMPLAINTS BUT ADMITS TO FEELING REALLY WEAK. PPN INFUSES AND Q6H CBG'S STABLE. PT LACKS APPETITE BUT TOLERATES ICE CHIPS AND SMALL SIPS LIQUID. IV ABX PROVIDED AND NEW ORDER OBTAINED TO SL CONTINUOUS IVF. PHOS LEVEL IS 2.1 THIS AM, DAY RN MADE AWARE. VSS/AFEBRILE AND NO ACUTE CHANGES. WCTM AND REPORT TO DAY RN.
--- NOTE | 2019-12-07 14:21 | NUR ---
Pt resting in bed and appears comfortable. Pt with her eyes closed intermittently throughout the visit. Pt appears comfortable at this time and received breakthrough pain medications shortly before this RN's arrival. Pt's daughter at bedside. Answered questions and concerns. Discussed options for pain medication if current regimen does not manage pain. Daughter expresses appreciation of visit and reports no other concerns at this time. Spoke with bedside RN Keith and discussed case. Palliative Care will remain available for symptom management and therapeutic visits.
--- NOTE | 2019-12-07 15:46 | NUR ---
SHIFT SUMMARY PT IS ALERT BUT VERY DROWSY. WHEN SHE IS AWAKE SHE IS ORIENTED X 4. SHE HAS C/O ABDOMINAL PAIN TODAY AND MEDS HAVE BEEN GIVEN ORDERED AND REPORTED EFFECTIVE. IV NUTRITION AND ABO INFUSING ORDERED WITH NO ISSUE. POWERGLIDE REMAINS PATENT. SPEECH THERAPY MET WITH PT TODAY BUT MADE NO NEW RECS. PALLIATIVE CARE NURSE MET WITH PT AND FAMILY TODAY ALONG WITH HEAD OF ACADEMIC TECHNOLOGY. PT REPORTS GENERAL MALAISE AND FATIGUE. SHE HAS MULTIPLE VISITORS THROUGHOUT THE DAY WHICH SHE SEEMS TO ENJOY BUT ALSO IS TIRING FOR HER AND SHE SLEEPS IN BETWEEN VISITS. PT HAS BEEN INC. SHE IS A X 1 ASSIST FOR TOILETING AND REPOSITIONING. PT REPORTS A DRY MOUTH AND ORAL CARE HAS BEEN PERFORMED THROUGHOUT THE DAY. PT IS ABLE TO MAKE HER NEEDS KNOWN AND CALLS FOR HELP WHEN NEEDED. CALL LIGHT IS IN REACH.
--- NOTE | 2019-12-08 04:40 | NUR ---
84 year old Female with endometrial cancer who had chemo and radiation to tx had rectal bleeding and recieved blood transfusions. She has a rt upper arm powerglide and recieving PPN at 102 ml hr. She has intermittant abd pelvis rectal pain and intermittant nausea. Medicated with 2 mg iv morpine with helpful effect. She recieved zofran 4 mg iv and had minimal if any oral intake. PT is DNI status, has advanced directive from 2013 to chart. PT very pale and weak. incontinent of bowel and bladder. no geovanna blood noted.
--- NOTE | 2019-12-08 07:57 | NUR ---
DR. DISLA CONTACT SPOKE WITH DR. DISLA THIS MORNING REGARDING LARGE LOOSE RED/MAROON STOOL, LOC OF PATIENT. ADVISED OF ACUTE CHANGE IN BP. NO NEW ORDERS GIVEN AT THIS TIME. LOC OF PT IS DIFFICULT TO DETERMINE PATIENT APPEARS TO BE LETHARGIC. LN TO CONTINUE TO MONITOR.
--- NOTE | 2019-12-08 07:59 | NUR ---
PT has rt ue powerglide unable to draw blood for AM lab from powerglide. PT has no s/sx of active GI bleed during night but this AM rounding with day RN and PT had large fecal incontinence of gritty brown maroon colored stool. PT had asked for icewater and was drinking for first time during night when she had stool. Continue to assess await labs. PPN continues.
[2019-12-08 08:34] LABS: Hematocrit 27.5 % (33.0-51.0); Hemoglobin 9.5 g/dL (11.5-16.0); Mean Corpuscular HGB Conc 34.5 g/dL (31.5-36.5); Mean Corpuscular Volume 93 fL (80-100); Mean Platelet Volume 10.2 fL (9.1-12.4); Platelet Count 89 K/mm3 (150-400); RDW Coefficient Variation 23.9 % (11.7-14.2); RDW Standard Deviation 77.4 fL (35.1-46.3); Red Blood Cell Count 2.97 M/mm3 (3.80-5.20); White Blood Cell Count 4.38 K/mm3 (4.00-11.30)
[2019-12-08 09:00] LABS: BAND PERCENT MAN 16 % (0-8); BASOPHILS PERCENT MAN 0 % (0-2); EOSINOPHILS ABSOLUTE MAN 0.04 K/mm3 (0.00-0.68); EOSINOPHILS PERCENT MAN 1 % (0-6); LYMPHOCYTES ABSOLUTE MAN 0.04 K/mm3 (0.84-5.20); LYMPHOCYTES PERCENT MAN 1 % (21-46); METAMYELOCYTE ABSOLUTE MAN 0.08 K/mm3 (0.00-0.00); METAMYELOCYTE PERCENT MAN 2 % (0-0); MONOCYTES ABSOLUTE MAN 0.13 K/mm3 (0.16-1.47); MONOCYTES PERCENT MAN 3 % (4-13); MYELOCYTE ABSOLUTE MAN 0.04 K/mm3 (0.00-0.00); MYELOCYTE PERCENT MAN 1 % (0-0); NEUTROPHILS ABSOLUTE MAN 4.02 K/mm3 (1.96-9.15); SEG NEUTROPHILS PERCENT MAN 76 % (41-73); TOTAL CELLS COUNTED 100
[2019-12-08 09:06] LABS: Magnesium, Blood 1.7 mg/dL (1.6-2.4)
[2019-12-08 09:19] LABS: Albumin/Globulin Ratio 0.4 (0.8-1.8); Bilirubin, Total 0.4 mg/dL (0.1-1.0); Bun/Creatinine Ratio 27.9 (12.0-20.0); Creatinine, Blood 0.97 mg/dL (0.40-1.00); Globulin, Blood 2.7 g/dL (2.2-4.0); Potassium, Blood 3.7 mmol/L (3.5-5.5); Total Protein, Blood 3.7 g/dL (6.4-8.2)
--- NOTE | 2019-12-08 18:04 | NUR ---
Pt visit this afternoon. Pt resting in bed upon arrival. Pt's daughter at bedside and RNs Jared and Julieta administering medicaiton and IV nutrition. Pt reports tolerable pain in her abdomen. Offered therapeutic listening throughout visit. Assisted BEATA Rendon in providing personal care for Pt and assisted with repositioning. No concerns reported at this time. Spoke with Dr Rooney prior to Pt visit, discussed case and plan of care. Palliative Care will remain available.
--- NOTE | 2019-12-09 06:44 | NUR ---
84 year old Female with advanced endometrial cancer who had chemo & radiation on Nov 23 in [place] continues to have some rectal bleeding intermittantly. Mostly brown loose stool with maroon tones. She contonues on PPN via rt UE powerglide and she has only sips of water this 12 hr shift. Medicated x 1 with 1 mg IV morphine and x 1 with roxicodone 5 mg and zofran x [address] Mcmillan called and order obtained for GI panel due to PT having loose stools again. DNR status due to new order. PT weaK AND LITTLE PURPOSEFUL MOVEMENT. EXTENSIVE ASSIST FOR TOILETING. Family reported to be in yesterday & supportive. No visitors this shift.
[2019-12-09 07:29] LABS: BASOPHILS ABSOLUTE AUTO 0.02 K/mm3 (0.00-0.23); BASOPHILS PERCENT AUTO 0 % (0-2); EOSINOPHILS ABSOLUTE AUTO 0.05 K/mm3 (0.00-0.68); EOSINOPHILS PERCENT AUTO 1 % (0-6); Hematocrit 26.6 % (33.0-51.0); Hemoglobin 9.1 g/dL (11.5-16.0); IMMATURE GRAN ABSOLUTE AUTO 0.22 K/mm3 (0.00-0.10); IMMATURE GRAN PERCENT AUTO 4 % (0-1); LYMPHOCYTES ABSOLUTE AUTO 0.39 K/mm3 (0.84-5.20); LYMPHOCYTES PERCENT AUTO 7 % (21-46); MONOCYTES ABSOLUTE AUTO 0.26 K/mm3 (0.16-1.47); MONOCYTES PERCENT AUTO 5 % (4-13); Mean Corpuscular HGB 31.5 pg (26.0-34.0); Mean Corpuscular HGB Conc 34.2 g/dL (31.5-36.5); Mean Corpuscular Volume 92 fL (80-100); NEUTROPHILS ABSOLUTE AUTO 4.82 K/mm3 (1.96-9.15); NEUTROPHILS PERCENT AUTO 84 % (41-73); Platelet Count 75 K/mm3 (150-400); RDW Coefficient Variation 22.7 % (11.7-14.2); RDW Standard Deviation 74.5 fL (35.1-46.3); Red Blood Cell Count 2.89 M/mm3 (3.80-5.20); White Blood Cell Count 5.76 K/mm3 (4.00-11.30)
[2019-12-09 07:51] LABS: Anion Gap 8 mmol/L (6-16); Blood Urea Nitrogen 27 mg/dL (8-24); Bun/Creatinine Ratio 29.4 (12.0-20.0); CO2, Blood 20 mmol/L (21-32); Calcium, Blood 6.8 mg/dL (8.5-10.1); Chloride, Blood 105 mmol/L (98-108); Creatinine, Blood 0.92 mg/dL (0.40-1.00); Glomerular Filtration Rate >60 (60-); Glucose, Blood 127 mg/dL (70-99); Magnesium, Blood 1.6 mg/dL (1.6-2.4); Phosphorus, Blood 2.5 mg/dL (2.5-4.9); Potassium, Blood 4.1 mmol/L (3.5-5.5); Sodium, Blood 133 mmol/L (136-145); Triglycerides 139 mg/dL (30-160)
--- NOTE | 2019-12-09 09:30 | NUR ---
PT HAD XL LIQUID MAROON STOOL PER GLUE SIZE MACHINE OPERATOR REPORT PRIOR TO THIS RN ASSUMING CARE OF PT AT 0930. KRAIG CARVAJAL (RN CARING FOR PT AT THE TIME) DISCUSSED THIS W/ W/NO NEW ORDERS RECIEVED.
[2019-12-09 10:50] LABS: Adenovirus F 40/41 Not Detected (NOT DETECT); Astrovirus Not Detected (NOT DETECT); Campylobacter Sp Not Detected (NOT DETECT); Cryptosporidium Not Detected (NOT DETECT); Cyclospora Cayetanensis Not Detected (NOT DETECT); E. Coli O157 Not Detected (NOT DETECT); Entamoeba Histolytica Not Detected (NOT DETECT); Enteroaggregative E. coli-EAEC Not Detected (NOT DETECT); Enteropathogenic E. coli-EPEC Not Detected (NOT DETECT); Enterotoxigenic E. coli-ETEC Not Detected (NOT DETECT); Giardia Lamblia Not Detected (NOT DETECT); Norovirus GI/GII Not Detected (NOT DETECT); Plesiomonas Shigelloides Not Detected (NOT DETECT); Rotavirus A Not Detected (NOT DETECT); Salmonella Sp Not Detected (NOT DETECT); Sapovirus Not Detected (NOT DETECT); Shiga Toxin-prod E. coli-STEC Not Detected (NOT DETECT); Shigella/Enteroin E. coli-EIEC Not Detected (NOT DETECT); Vibrio Cholerae Not Detected (NOT DETECT); Vibrio Sp Not Detected (NOT DETECT); Yersinia Enterocolitica Not Detected (NOT DETECT)
--- NOTE | 2019-12-09 11:31 | NUR ---
PT WAS MEDICATED FOR GENERALISED PAIN W/MORPHINE 1MG IV. SHE HAD ANOTHER MEDIUM SIZED LIQUID MAROON STOOL SHORTLY AFTER W/ATTENDS CHANGED AND SKIN CARE PROVIDED. PT REPORTED SHE WAS IN NO FURTHER DISCOMFORT FOLLOWING PAIN MED. WCTM AND MEDICATE PRN.
--- NOTE | 2019-12-09 11:36 | NUR ---
GI PANEL RESULTS ARE (-) AND PT CLEARED BY INFECTION CONTROL BY LISBETH MARTINES. PT REMOVED FROM ISOLATION AT THIS TIME.
--- NOTE | 2019-12-09 13:16 | NUR ---
Therapeutic visit this afternoon. Pt resting in bed and is receiving pain medicaiton. Daughter Kerry not present at this time. Pt's sister Crissy and friend Vasile currently visiting. Pt slow to respond and appears lethargic. Offered therapeutic listening with Pt expressing only concern at this time is her dry mouth. Pt agreeable for Palliative Care to F/U at a later time. Spoke with bedside RNs Julieta Rosa, and discussed case. Webb Catheter would be beneficial due to diuresing and copious amounts of stool. Spoke with Dr Rooney. Placed order for Webb Catheter and Biotene for dry mouth per V/O from Dr Rooney. Palliative Care will remain available.
--- NOTE | 2019-12-09 13:31 | NUR ---
REPORT PROVIDED TO KRAIG CARVAJAL WHO'S NOW RESUMING CARE.
[2019-12-09 14:45] LABS: Source, Urine Catheter
[2019-12-09 14:55] LABS: Bilirubin, Urine Neg (Neg); Blood, Urine 1+ (Neg); Glucose Qualitative, Urine Neg (Neg); Ketones, Urine Neg (Neg); Leukocyte Esterase, Urine 1+ (Neg); Nitrite, Urine Neg (Neg); Protein, Urine Neg (Neg); Specific Gravity, Urine 1.015 (1.003-1.022); Urobilinogen, Urine NORM (Normal)
[2019-12-09 15:06] LABS: Appearance, Urine Clear (Clear); Color, Urine Yellow (P-Yellow)
[2019-12-09 15:07] LABS: Bacteria Few /hpf; Red Blood Cells, Urine 0-2 /hpf (0-2); Squamous Epithelial Cells Rare /hpf (Few); White Blood Cells, Urine 0-2 /hpf (0-5)
--- NOTE | 2019-12-09 16:04 | NUR ---
notified dr. Travis of patients bp. Orders placed per emar. also had a conversation with family regarding goals. Family would like to continue with fluid bolus at this time.
--- NOTE | 2019-12-09 18:23 | NUR ---
SHIFT SUMMARY PATIENT HAS BEEN VERY TIRED TODAY. SOME COMPLAINTS OF PAIN REGARDING HER ABDOMEN, REFUSING PAIN MEDS. SOME NAUSEA NOTED, MEDICATED PER EMAR.
--- NOTE | 2019-12-09 18:23 | NUR ---
notified of patient bp. 87/50. family agreed to another 500cc bolus.
--- NOTE | 2019-12-09 19:00 | NUR ---
ADMINISTERED IV MORPHINE. PROVIDER AWARE OF THIS. AND AWARE OF PATIENT CURRENTLY BLOOD PRESSURE. FAMILY AND PATIENT AGREED PAIN MANAGEMENT AT THIS TIME WAS THE "PRIORITY". CONTINUING WITH PALLIATIVE "CONSERVATIVE" TREATMENTS. FAMILY AT BEDSIDE.
--- NOTE | 2019-12-09 21:08 | NUR ---
DR Jj updated on PT hypotension and orders for 500 ml IV fluid bolus and call MD. BP 84/46 p 80 r 16 and PT CO 10/10 abd pain. had morphine 1 mg 1 hr prior and has 5 mg roxycodone q 4 hr PRN . DC morhine satrt fentanyl 25 mcg Q 3 hrs PRN severe pain. change PRN IV 500 ml bolus Q 6 hrs PRN SBP less than 90. Will administer 500 ml bolus and reassess. Medicate for pain PRN.
[2019-12-10 05:55] LABS: BASOPHILS ABSOLUTE AUTO 0.03 K/mm3 (0.00-0.23); BASOPHILS PERCENT AUTO 1 % (0-2); EOSINOPHILS ABSOLUTE AUTO 0.05 K/mm3 (0.00-0.68); EOSINOPHILS PERCENT AUTO 1 % (0-6); Hematocrit 22.9 % (33.0-51.0); Hemoglobin 8.1 g/dL (11.5-16.0); IMMATURE GRAN ABSOLUTE AUTO 0.11 K/mm3 (0.00-0.10); IMMATURE GRAN PERCENT AUTO 2 % (0-1); LYMPHOCYTES ABSOLUTE AUTO 0.56 K/mm3 (0.84-5.20); LYMPHOCYTES PERCENT AUTO 10 % (21-46); MONOCYTES ABSOLUTE AUTO 0.21 K/mm3 (0.16-1.47); MONOCYTES PERCENT AUTO 4 % (4-13); Mean Corpuscular HGB 31.8 pg (26.0-34.0); Mean Corpuscular HGB Conc 35.4 g/dL (31.5-36.5); Mean Corpuscular Volume 90 fL (80-100); Mean Platelet Volume 11.4 fL (9.1-12.4); NEUTROPHILS ABSOLUTE AUTO 4.62 K/mm3 (1.96-9.15); NEUTROPHILS PERCENT AUTO 83 % (41-73); Platelet Count 77 K/mm3 (150-400); RDW Coefficient Variation 22.2 % (11.7-14.2); RDW Standard Deviation 70.8 fL (35.1-46.3); Red Blood Cell Count 2.55 M/mm3 (3.80-5.20); White Blood Cell Count 5.58 K/mm3 (4.00-11.30)
[2019-12-10 06:15] LABS: Albumin, Blood 0.9 g/dL (3.4-5.0); Albumin/Globulin Ratio 0.4 (0.8-1.8); Bilirubin, Total 0.3 mg/dL (0.1-1.0); Bun/Creatinine Ratio 29.7 (12.0-20.0); Calcium, Blood 6.8 mg/dL (8.5-10.1); Creatinine, Blood 0.94 mg/dL (0.40-1.00); Globulin, Blood 2.4 g/dL (2.2-4.0); Potassium, Blood 4.1 mmol/L (3.5-5.5); Total Protein, Blood 3.3 g/dL (6.4-8.2)
--- NOTE | 2019-12-10 07:53 | NUR ---
Family at bedside this AM supportive. BP improved this AM after 1 x 500 ml ns fluid boulus for SBP less than 90. Pain much better controlled on fentanyl 25 mcg x 1 . Rested quietly. Medicated x 2 with 5 mg roxicodone and gave 650 mg tylenol this AM. Oral intake very poor bites and sips only. Continues on PPN at 107 ml hour. Webb cath was inserted for imbobile incontinent PT on strict I & O.
--- NOTE | 2019-12-10 10:43 | NUR ---
HEMANT THIS RN CHECKED IN WITH FAMILY AND PATIENT, PER FAMILY REQUEST, HOLD OFF ON ABX FOR A LITTLE WHILE. WILL CHECK BACK LATER.
--- NOTE | 2019-12-10 18:47 | NUR ---
Shift Summary A/O, family has been very involved with care and at bedside throughout the day. Pt had one episode of small maroon unformed incontinent stool today. Medicated for abdominal pain x 2, for nausea x 1 with good results. Poor appetite. BP has remained >90mmHg throughout shift. Pt does not verbalize pain, but does show a great deal of nonverbal signs of pain such as grimacing and moaning. Webb catheter patent and draining well. No other concerns.
--- NOTE | 2019-12-11 03:12 | NUR ---
HYPOTENSTION PT GIVEN 500CC BOLUS OF NS PER STANDING ORDER FOR BP 80/51. DR. KING CALLED AND NOTIFIED. BP POSITIVELY RESPONDED TO BOLUS. NO ADDITIONAL ORDERS GIVEN.
--- NOTE | 2019-12-11 06:07 | NUR ---
SHIFT SUMMARY PT HAS HAD MORE MAROON COLORED LOOSE STOOLS X1 THIS SHIFT, PER DAYSHIFT PT HAD A FORMED MAROON COLORED STOOL AND NO LOOSE STOOLS. THIS SHIFT HOWEVER, THERE WAS A VERY LARGE AMOUNT LIQUID STOOL. SHE COMPLAINS OF ABD DISCOMFORT MOSTLY WITH REPOSITIONING. ABD IS FIRM AND DISTENDED. MEDICATED X1 WITH ROXICODONE WITH EFFECT. PT DENIED PAIN OR NEEDS FOR MOST OF THE NIGHT WHEN ASKED. GRIER IN PLACE PATENT AND DRAINING WITH SHIRAZ COLORED URINE. HYPOTYENSIVE THIS SHIFT CORRECTED WITH 500 CC BOLUS. NO ACUTE CHANGES TO REPORT. WILL CONTINUE TO MONITOR AND REPORT TO ONCOMING RN.
[2019-12-11 06:28] LABS: BASOPHILS ABSOLUTE AUTO 0.01 K/mm3 (0.00-0.23); BASOPHILS PERCENT AUTO 0 % (0-2); EOSINOPHILS ABSOLUTE AUTO 0.04 K/mm3 (0.00-0.68); EOSINOPHILS PERCENT AUTO 1 % (0-6); Hematocrit 22.8 % (33.0-51.0); Hemoglobin 7.8 g/dL (11.5-16.0); IMMATURE GRAN ABSOLUTE AUTO 0.11 K/mm3 (0.00-0.10); IMMATURE GRAN PERCENT AUTO 3 % (0-1); LYMPHOCYTES ABSOLUTE AUTO 0.39 K/mm3 (0.84-5.20); LYMPHOCYTES PERCENT AUTO 9 % (21-46); MONOCYTES ABSOLUTE AUTO 0.17 K/mm3 (0.16-1.47); MONOCYTES PERCENT AUTO 4 % (4-13); Mean Corpuscular HGB 31.6 pg (26.0-34.0); Mean Corpuscular HGB Conc 34.2 g/dL (31.5-36.5); Mean Corpuscular Volume 92 fL (80-100); NEUTROPHILS ABSOLUTE AUTO 3.67 K/mm3 (1.96-9.15); NEUTROPHILS PERCENT AUTO 84 % (41-73); Platelet Count 79 K/mm3 (150-400); RDW Coefficient Variation 21.5 % (11.7-14.2); RDW Standard Deviation 70.9 fL (35.1-46.3); Red Blood Cell Count 2.47 M/mm3 (3.80-5.20); White Blood Cell Count 4.39 K/mm3 (4.00-11.30)
[2019-12-11 06:38] LABS: Bun/Creatinine Ratio 27.9 (12.0-20.0); Calcium, Blood 6.8 mg/dL (8.5-10.1); Creatinine, Blood 0.97 mg/dL (0.40-1.00); Magnesium, Blood 1.3 mg/dL (1.6-2.4); Phosphorus, Blood 2.3 mg/dL (2.5-4.9); Potassium, Blood 3.7 mmol/L (3.5-5.5)
--- NOTE | 2019-12-11 06:45 | NUR ---
HGB LAB RESULTS BACK AT THIS TIME. HGB HAS DROPPED SLIGHLY AND IS NOW AT 7.8. PT HAD LOOSE MAROON STOOLS THIS SHIFT. NOT SIGNIFICANT DROP FROM YESTERDAY. CUPOL[employer] CHARGER SANJEEV CAVANAUGH NOTIFIED. HE STATES TO NOTIFY DAYSHIFT RN FOR FOLLOW UP WITH ATTENDING PHYSICAN. WILL NOTIFY.
--- NOTE | 2019-12-11 08:55 | NUR ---
Blood transfusion This RN spoke with patient's family RE plan of care. According to daughter, patient wanted life sustaining treatment for a few more days. Per report from night BEATA Clinton, pt had a large maroonish loose bm last night and a sbp 80 for which a bolus of fluid was administered. Hgb dropped from 8.1 to 7.8. Discussed this with Dr. Jacinto, order received to administer 1 unit PRBC.
--- NOTE | 2019-12-11 09:30 | NUR ---
Flagyl/PPN compatibility This RN verified IV compatibility. Per Sunday in pharmacy, Flagyl and PPN is compatible.
--- NOTE | 2019-12-11 18:22 | NUR ---
Shift Summary A/Ox2 with intermittent confusion. Pt had large maroon loose/mucosy bm x 1 this shift. Medicated for pain x 3 with good results. PPN @ 107. SBP remained greater than 90 mmHg. Trasfused 1 PRBC, pt tolerated well. Webb patent and draining. No other concerns or changes.
--- NOTE | 2019-12-12 04:40 | NUR ---
SUMMARY PT HAS SLEPT T/O SHIFT. PT HAD NO REPORTS OF PAIN OR DISCOMFORT. PT HAS BEEN CHANGED AND REPOSITIONED NEEDED. PT CURRENTLY SLEEPING AND BREATHING EAY. CALL LIGHTIN CANDACE.
[2019-12-12 06:29] LABS: BASOPHILS ABSOLUTE AUTO 0.02 K/mm3 (0.00-0.23); BASOPHILS PERCENT AUTO 0 % (0-2); EOSINOPHILS ABSOLUTE AUTO 0.02 K/mm3 (0.00-0.68); EOSINOPHILS PERCENT AUTO 0 % (0-6); Hemoglobin 8.6 g/dL (11.5-16.0); IMMATURE GRAN ABSOLUTE AUTO 0.12 K/mm3 (0.00-0.10); IMMATURE GRAN PERCENT AUTO 2 % (0-1); LYMPHOCYTES ABSOLUTE AUTO 0.85 K/mm3 (0.84-5.20); LYMPHOCYTES PERCENT AUTO 14 % (21-46); MONOCYTES ABSOLUTE AUTO 0.21 K/mm3 (0.16-1.47); MONOCYTES PERCENT AUTO 3 % (4-13); Mean Corpuscular HGB 30.8 pg (26.0-34.0); Mean Corpuscular HGB Conc 34.4 g/dL (31.5-36.5); Mean Corpuscular Volume 90 fL (80-100); Mean Platelet Volume 11.7 fL (9.1-12.4); NEUTROPHILS ABSOLUTE AUTO 4.93 K/mm3 (1.96-9.15); NEUTROPHILS PERCENT AUTO 80 % (41-73); Platelet Count 99 K/mm3 (150-400); RDW Coefficient Variation 20.3 % (11.7-14.2); RDW Standard Deviation 65.1 fL (35.1-46.3); Red Blood Cell Count 2.79 M/mm3 (3.80-5.20); White Blood Cell Count 6.15 K/mm3 (4.00-11.30)
--- NOTE | 2019-12-12 08:19 | NUR ---
LOW BP: RN NOTIFIED OF BP BELOW 90 (88/48). PATIENT RESTING IN BED. AWAKENS EASILY TO VOCAL CUES. PATIENT DENIES PAIN OR SOB. PER ORDER, 500ML NS BOLUS STARTED. PATIENT'S LUNG SOUNDS ARE CLEAR AND DIMINISHED. PATIENT HAS 2-3+ EDEMA IN BILATERAL UPPER EXTREMETIES. DR. BARRIOS NOTIFIED. NO NEW ORDERS AT THIS TIME.
--- NOTE | 2019-12-12 13:34 | NUR ---
Pt awake slow to respond but answeres questions well. Minimal pain per patient. Family states times of significant pain. Pt has significant stomitsis. assited nursing and physician with ordering magic mouthwas for comfort and treatment. Reviewed with pharmacy for weather steroids appropriate will adjust with pharmacy. Patient was ok with me having a conversation with her children about future care needs. We reviewed trajectory of disease and discussed her cancer care and what oncolgists have oofered. We reviewed symptom management and comfort and prognosis. The children are very understanding of her need for hospice care they are struggling with helping her make the choice and where to draw the line. we reviewed supporting a parent and moral distress and making end of life decisions. We reviewed supportive care and hospice and quality of life. Focus was on their stress of her having morre symptoms and suffering. Presented benefits of hospice to allow more interaction and comfort and good days at end of life. They state their mother has not been a good decision maker. Suggested soem strategies of conversation to help them explore her feelings. Offered to meet with her alone and see if she would share what she wants to do. Will follow up with family and reassess symptoms.
--- NOTE | 2019-12-12 18:11 | NUR ---
END OF SHIFT SUMMARY: PATIENT ABLE TO TOLERATE ONLY SMALL AMOUNTS OF FOOD (PUREED) AND LIQUID. PATIENT HAS MINIMAL INTEREST IN PO INTAKE. MEDICATED ONCE FOR NAUSEA. NO EMESIS. PATIENT HAD BREAKTHROUGH PAIN LATE IN THE MORNING. SEE EMAR. DISCUSSED WITH PATIENT AND FAMILY THE IMPORTANCE OF STAYING ON TOP OF THE PAIN. THEY ARE IN AGREEMENT. PATIENT TOLERATING PO OXYCODONE WELL. BP CONTINUES TO BE ABOVE 100 AFTER THIS MORNING'S LOW BP. PALLIATIVE CARE RN, THANH QUINTANA DISCUSSED WITH RN THE PRESENCE OF STOMATITIS IN THE MOUTH. RELAYED TO DR BARRIOS AND RECEIVED AN ORDER FOR MAGIC MOUTH WASH. PATIENT ABLE TO TAKE MEDICATIONS WHOLE WITH APPLESAUCE WITHOUT DIFFICULTY. FAMILY WAS AT BEDSIDE THROUGHOUT THE DAY. ABLE TO DISCUSS PLAN WITH PALLIATIVE CARE AND DR. SAWANT.
--- NOTE | 2019-12-12 19:03 | NUR ---
Recheck on pt family at bedside tolerated oral care with magic mouth wash. Nursing states better response to pain management. will meet with family tomorrow and set up plan for saturday with care managers
--- NOTE | 2019-12-13 04:18 | NUR ---
SUMMARY PT HAD NO ISSUES NOTED. PT STILL HAVING DARK RED/BROWN STOOL. PT PAIN TX PER EMAR. PT HAS SLEPT WELL T/O SHIFT. PT STILL POOR PO INTAKE. PT CURRENTLY SLEEPING AND BREATHING EASY. CALL LIGHT IN REACH.
[2019-12-13 10:23] LABS: BASOPHILS ABSOLUTE AUTO 0.02 K/mm3 (0.00-0.23); BASOPHILS PERCENT AUTO 0 % (0-2); EOSINOPHILS ABSOLUTE AUTO 0.02 K/mm3 (0.00-0.68); EOSINOPHILS PERCENT AUTO 0 % (0-6); Hematocrit 24.5 % (33.0-51.0); Hemoglobin 8.2 g/dL (11.5-16.0); IMMATURE GRAN PERCENT AUTO 2 % (0-1); LYMPHOCYTES ABSOLUTE AUTO 0.94 K/mm3 (0.84-5.20); LYMPHOCYTES PERCENT AUTO 15 % (21-46); MONOCYTES ABSOLUTE AUTO 0.22 K/mm3 (0.16-1.47); MONOCYTES PERCENT AUTO 4 % (4-13); Mean Corpuscular HGB 30.3 pg (26.0-34.0); Mean Corpuscular HGB Conc 33.5 g/dL (31.5-36.5); Mean Corpuscular Volume 90 fL (80-100); Mean Platelet Volume 11.5 fL (9.1-12.4); NEUTROPHILS ABSOLUTE AUTO 4.87 K/mm3 (1.96-9.15); NEUTROPHILS PERCENT AUTO 79 % (41-73); Platelet Count 116 K/mm3 (150-400); RDW Coefficient Variation 19.9 % (11.7-14.2); RDW Standard Deviation 64.2 fL (35.1-46.3); Red Blood Cell Count 2.71 M/mm3 (3.80-5.20); White Blood Cell Count 6.17 K/mm3 (4.00-11.30)
[2019-12-13 10:44] LABS: Anion Gap 7 mmol/L (6-16); Blood Urea Nitrogen 25 mg/dL (8-24); Bun/Creatinine Ratio 28.1 (12.0-20.0); CO2, Blood 26 mmol/L (21-32); Calcium, Blood 6.9 mg/dL (8.5-10.1); Chloride, Blood 98 mmol/L (98-108); Creatinine, Blood 0.89 mg/dL (0.40-1.00); Glomerular Filtration Rate >60 (60-); Glucose, Blood 106 mg/dL (70-99); Potassium, Blood 3.7 mmol/L (3.5-5.5); Sodium, Blood 131 mmol/L (136-145)
--- NOTE | 2019-12-13 12:31 | NUR ---
DR SAWANT INTO SEE PT AND FAMILY MADE AWARE OF PTS MAROON COLORED STOOLS. THE PT AND THE FAMILY HAVE DECIDED TO TRANSITION TO COMFORT CARE/HOSPICE.
--- NOTE | 2019-12-13 13:00 | NUR ---
REPORT GIVEN TO RON COTA AND RY COTA
--- NOTE | 2019-12-13 16:22 | NUR ---
SHIFT SUMMARY FAMILY AT BEDSIDE MOST OF THE DAY. PATIENT CHANGED TO COMFORT CARE STATUS. FENTANYL PATCH PLACED. MEDICATED PER PAIN ORDERS FAIRLY ROUTINELY TO KEEP COMFORTABLE. TURNING Q2. PPN TO STOP AFTER CURRENT BAG
--- NOTE | 2019-12-14 03:43 | NUR ---
SUMMARY PT COMFORT MAINTAINED. PT REPOSITIONED ORDERED. NO ISSUES NOTED WCTM.
--- NOTE | 2019-12-14 15:59 | NUR ---
SHIFT SUMMARY PT HAS BEEN ALERT AT TIMES AND ORIENTED TO HERSELF AND FAMILY BUT SLEEPING MOST OF THE DAY. SHE HAS HAD NO S/S OF PAIN AND WHEN ASKED SHE DENIES ANY DISCOMFORT. FAMILY WAS CONCERNED ABOUT SOME SECRETIONS AND PER DR CASTELLON PT WAS MEDICATED REFLECTED ON THE MAR. HOB IS ELEVATED COMFORTABLE FOR PT. FAMILY HAS BEEN AT THE BEDSIDE THROUGHOUT THE DAY. [facility] IS MEETING WITH PT AND FAMILY NOW TO DISCUSS THE OPTIONS FOR DC PLANNING. PT AND FAMILY HAVE ALSO MET SKIDDER RUNNER AND PALLIATIVE CARE NURSE TODAY. PT IS ABLE TO MAKE HER NEEDS KNOWN AT TIMES AND THE FAMILT CALLS FOR HELP WHEN NEEDED. PT IS RESTING COMFORTABLY IN BED.
--- NOTE | 2019-12-14 22:17 | NUR ---
Twin Sister has been in to visit PT. PT sleeping soundly DTR at bedside requsts we not wake Mother to reposition her currently. Appears comfortable with stevens cath patent. Has fentanyl patch and scopalimine patch was applied earlier today.
--- NOTE | 2019-12-14 23:37 | NUR ---
continues sleeping appears comfortable, Family asks PT not be disturbed.
--- NOTE | 2019-12-15 16:49 | NUR ---
SHIFT SUMMARY PT IS ALERT AT TIMES WHEN SHE IS AWAKE SHE IS ORIENTED TO HERSELF AT TIMES. SHE SLEEPS MOST OF THE DAY. SHE AWOKE X 2 AND C/O PAIN. PAIN MEDS WERE GIVEN ORDERED AND EFFECTIVE. FAMILY REMAINS AT THE BEDSIDE THROUGHOUT THE DAY. PT HAS BEEN RESTING COMFORTABLY IN BED. GRIER IS PATENT. PT REMAINS INC OF STOOL AND IS TURNED AND REPOSITIONED FREQUENTLY. PT FAMILY CALLS FOR HELP WHEN NEEDED. AND PT REQUIRES FREQUENT NURSE ROUNDING. CALL LIGHT IS IN REACH.
--- NOTE | 2019-12-15 17:53 | NUR ---
Initial spiritual care note: Mrs. Li slept peacefully while I met with her son and dtr. Both report acceptance of POC. They were soft-spoken, tearful, and loving. I facilitated story-telling to good effect. They report that Lucia's yarsani family have been visiting as well as multiple family members. No fears/concerns presented. Gentle anticipatory bereavement international student counselor well-recieved. I will remain available.
--- NOTE | 2019-12-15 19:55 | NUR ---
twin Sister was at bedside watching PT sleep peacefully. She went home after thanking me for caring sor her twin Sister Lucia.
--- NOTE | 2019-12-15 22:16 | NUR ---
DTR at Bedside supportive, PT awake able to answer short speech. Denies pain, positioned to decrease edema and pressure. Oral care complete.
--- NOTE | 2019-12-16 09:39 | NUR ---
Comfort Care: Pt is sitting up in bed. She denies anxiety, but does report more severe pain. She is unable to rate her pain at this time, as she says that she has difficulty with this. Family is at bedside, discussed discharge home with hospice care. Kerry, pt's daughter, expresses gratitude for better pain management with the fentanyl patch. Discussed titrating dose of fentanyl patch for therapeutic effect. Reviewed side effects of medications, instructions for medications at time of discharge. No other concerns at this time. Will remain available. Recommend titrating dose of fentanyl patch to address pain. Daughter states that pt will not ask for pain medication from nurses, even when she is in pain.
--- NOTE | 2019-12-16 11:49 | NUR ---
PT REPOSITIONED AND BED BATH PERFORMED, PT HAD LARGE LOOSE STOOL THAT REQUIRED A TOTAL BED CHANGE.
--- NOTE | 2019-12-16 15:05 | NUR ---
BED PATH PERFORMED AND LINEN CHANGED
--- NOTE | 2019-12-16 15:55 | NUR ---
PT RESTING IN BED.
--- NOTE | 2019-12-16 17:22 | NUR ---
SHIFT SUMMARY PT A&O x4, PT HAS FAMILY AT BEDSIDE MOST OF THE DAY. PT COMPLIANES OF PAIN WITH MOVEMENT HER ABDOMEN, PT HAS FEYNTANYL PATCH IN PLACE ON LEFT UPPER SHOULDER CHANGD THIS SHIFT. PT WAS MEDICATED X1 FOR BREAK THROUGH PAIN. PT HAS TOLORATED FOOD THIS SHIFT AND EMILY ANY NAUSEA. PT HAD A LARGE LOOSE STOOL THIS SHIFT. PT HAD BED BATH AND LINEN CHANGED. PT HAS RESTED WELL THIS AFTERNOON. PT HAS CALL LIGHT WITH IN REACH AND WILL REPORT TO BHARATI COTA.
--- NOTE | 2019-12-17 00:56 | NUR ---
PATIENT SLEEPING COMFORTABLY
--- NOTE | 2019-12-17 07:09 | NUR ---
SHIFT SUMMARY PATIENT ALERT AND ORIENTED. SLEPT COMFORTABLY OVERNIGHT WITH NO SIGNS OF PAIN OR DISCOMFORT. GRIER IN PLACE AND DRAINING TO GRAVITY. POWERGLIDE PATENT AND FLUSHED. BED IN LOWEST POSITION WITH WHEELS LOCKED. CALL LIGHT WITHIN REACH. REPORT GIVEN TO ONCOMING RN.
[2019-12-17] MEDS ORDERED: ATROPINE 0.01%-10 ML PO (09:23)
[2019-12-17] MEDS ORDERED: Fentanyl1 EACH TOP (09:23)
[2019-12-17] MEDS ORDERED: MORP20L SL (09:24)
[2019-12-17] MEDS ORDERED: PROM25 PO (09:25)
[2019-12-17] MEDS ORDERED: Transderm-Scop1 EACH TOP (09:27)
[2019-12-17] MEDS ORDERED: Ativan1 MG PO (09:27)
--- NOTE | 2019-12-17 12:57 | NUR ---
PT RESTING QUIETLY
--- NOTE | 2019-12-17 15:08 | NUR ---
BED BATH PERFORMED AND LINEN CHANGED, BARRIER CREAM APPLIED AND REPOSITIONED.
--- NOTE | 2019-12-17 15:45 | NUR ---
PT A&O X4, PT D/C HOME ON HOSPICE. PT TRANSPORTED WITH MEDICAL TRANSPORT VIA GURNEY. HARD SCRIPT FOR FEYNTNAL PATCH SENT TO FILL AT [facility]. BELONGINGS SENT WITH DAUGHTER.
== END 2019-12-17 15:48 | disposition hospice, home (50) | DRG 393 ==
LOC: ER 06:13 → MEDS 06:14 → ENPENDDIS 12-17 09:00 → MEDS 12-17 15:48
PROVIDERS: Emergency Medicine; Family Medicine; Hospitalist; Internal Medicine; Student in an Organized Health Care Education/Training Program; ADMIT Internal Medicine
DX: K52.0 Gastroenteritis and colitis due to radiation (principal); G92 Toxic encephalopathy; D62 Acute posthemorrhagic anemia; N17.9 Acute kidney failure, unspecified; E44.0 Moderate protein-calorie malnutrition; I48.91 Unspecified atrial fibrillation; I10 Essential (primary) hypertension; C53.9 Malignant neoplasm of cervix uteri, unspecified; I48.0 Paroxysmal atrial fibrillation; I95.9 Hypotension, unspecified; E83.39 Other disorders of phosphorus metabolism; Z66 Do not resuscitate; D69.6 Thrombocytopenia, unspecified; E83.42 Hypomagnesemia; R63.0 Anorexia; Z68.22 Body mass index [BMI] 22.0-22.9, adult
CPT/HCPCS: 0097U; 36415; 36430; 74177; 80048; 80053; 81001; 82947; 83735; 84100; 84478; 85025; 86850; 86900; 86901; 86920; 86923; 87086; 92526; 92610; 96361; 96365-59; 96366; 96367; 96375; 96376; 99285-25; A9270; A9270-GY; C1751; C9113; G0378; J0610; J0744; J1940; J2270; J2405; J3010; J3411; J3475; J7030; J7040; J7050; J7060; J7131; P9016; Q9967